=== PATIENT | male | born 1980 | race African-American/Black ===

== ENCOUNTER 2024-07-25 16:59 | Emergency (ER) | payer SELFPAY ==
[2024-07-25] VITALS (23 sets, daily range): BP systolic 137–149; BP diastolic 86–97; PULSE 64–96; RESP 13–21; TEMP 36.8; O2SAT 96–100
--- NOTE | ~2024-07-25 | XR_ITS ---
XR chest 2V Ordering provider: Xavi Polk MD History: 44 years Male with . cp, hx of afib . Comparison: None. FINDINGS: MEDIASTINUM: The cardiac silhouette is not enlarged. LUNGS: No infiltrates, effusions or pneumothorax. OTHER: No free air under the diaphragm. IMPRESSION: No acute cardiopulmonary pathology. Reviewed, dictated and finalized at location [facility]
--- NOTE | 2024-07-25 17:04 | ECG_ITS ---
Test Date: 2024-07-25 17:07:49 Measurements Intervals [place] Rate: 76 P: 60 [place]: 127 QRS: 34 QRSD: 89 T: -18 QT: 355 QTc: 399 Interpretive Statements SINUS RHYTHM POSSIBLE LEFT ATRIAL ENLARGEMENT [-0.1mV P WAVE IN V1/V2] NONSPECIFIC T-WAVE ABNORMALITY ABNORMAL ECG No previous ECG available for comparison Electronically Signed On 07-26-2024 10:54:07 [employer] by Gorge Monroy M.D.
[2024-07-25 17:35] LABS: Basophils Percent Auto 0.4 % (0.2-1.2); Eosinophils Percent Auto 0.6 % (0-4.4); Hematocrit 43.5 % (42.0-52.0); Hemoglobin 14.4 g/dL (14.0-18.0); Immature Granulocyte Absolute 0.02 K/mm3 (0.00-0.031); Immature Granulocyte Percent A 0.4 % (0-0.5); Lymphocytes Absolute Auto 1.75 K/mm3 (0.9-3.2); Lymphocytes Percent Auto 32.5 % (18.3-44.2); Mean Corpuscular HGB Conc 33.1 g/dl (32-36); Mean Corpuscular Hemoglobin 29.3 pg (26-34); Mean Corpuscular Volume 88.4 fl (80-100); Monocytes Absolute Auto 0.3 K/mm3 (0.1-0.6); Monocytes Percent Auto 5.6 % (2.6-8.5); Neutrophils Absolute Auto 3.3 K/mm3 (1.3-6.7); Neutrophils Percent Auto 60.5 % (45.5-73.1); Platelet Count Result 253 k/mm3 (150-375); Red Blood Count 4.92 M/mm3 (4.6-6.20); Red Cell Distribution Width 11.7 % (11.5-14.5); White Blood Count 5.4 K/mm3 (4.5-10.0)
--- NOTE | 2024-07-25 17:46 | ED_ITS ---
HPI - Chest Pain General Chief Complaint: Chest Pain Stated Complaint: chest pressure, hx afib Time Seen by Provider: 07/25/24 17:36 History of Present Illness HPI narrative: 44-year-old male with a history of AFib on amiodarone presenting with chest discomfort. States that earlier today he had a funny feeling in the left side of his chest. States that it just did not feel right, states that it was not painful. No shortness of breath or lightheadedness. No palpitations. No new leg swelling. States that he recently saw a athletic equipment manager who recommended he stop his amiodarone and switched to metoprolol which he has not done is he is concerned about the side effects of metoprolol. Related Data Allergies Allergy/AdvReac Type Severity Reaction Status Date / Time No Known Allergies Allergy Verified 07/25/24 17:32 Review of Systems Review of Systems: All systems reviewed & are unremarkable except as noted in HPI and below Exam Narrative: GENERAL: Well-appearing, well-nourished, and in no acute distress. HEAD: Normocephalic, atraumatic. EYES: PERRLA and EOMI. ENT: Grossly unremarkable NECK: Supple. CHEST: Clear to auscultation. No respiratory distress. HEART: Regular rate and rhythm ABDOMEN: Soft, nontender, nondistended EXTREMITIES: No edema. SKIN: Warm, dry, no rash. NEURO: Alert and oriented x3. PSYCH: Normal mood and affect. Course Vital Signs Vital signs: Vital Signs Temperature 98.2 F 07/25/24 17:05 Pulse Rate 96 07/25/24 17:05 Respiratory Rate 18 07/25/24 17:05 Blood Pressure 147/88 H 07/25/24 17:05 Pulse Oximetry 100 07/25/24 17:05 Oxygen Delivery Room Air 07/25/24 17:05 Temperature 98.2 F 07/25/24 17:05 Pulse Rate 79 07/25/24 18:05 Respiratory Rate 18 07/25/24 18:05 Blood Pressure 145/90 H 07/25/24 18:05 Pulse Oximetry 99 07/25/24 18:05 Oxygen Delivery Room Air 07/25/24 17:27 MDM - Chest Pain MDM Narrative Medical decision making narrative: 44-year-old male presenting with chest discomfort earlier today. Blood pressure is mildly elevated, otherwise vitals are within normal limits. EKG per my interpretation shows normal sinus rhythm, nonspecific T-wave changes, no ST elevations or depressions. Blood work is unremarkable. Troponin is undetectable. 3 hour troponin remains undetectable. Feel he is safe for outpatient management. Discussed with him to stop his amiodarone and start the metoprolol as his athletic equipment manager recently recommended. Recommend close PCP follow-up. Will provide the phone number for a new 1. Appropriate return precautions given. Discharged in stable condition. Differential Diagnosis Differential diagnosis: Likely atypical chest pain, costochondritis and chest pain Medical Records Data Attestation: I reviewed the patient's medical records. Lab Data Attestation: I reviewed the patient's lab results. 07/25/24 17:15 07/25/24 17:15 Labs: Lab Results 07/25/24 07/25/24 Range/Units 17:15 20:13 WBC 5.4 (4.5-10.0) K/mm3 RBC 4.92 (4.6-6.20) M/mm3 Hgb 14.4 (14.0-18.0) g/dL Hct 43.5 (42.0-52.0) % MCV 88.4 (80-100) fl MCH 29.3 (26-34) pg MCHC 33.1 (32-36) g/dl RDW 11.7 (11.5-14.5) % Plt Count 253 (150-375) k/mm3 MPV 10.0 (7.4-10.4) fl Immature Gran % (Auto) 0.4 (0-0.5) % Neut % (Auto) 60.5 (45.5-73.1) % Lymph % (Auto) 32.5 (18.3-44.2) % [place] % (Auto) 5.6 (2.6-8.5) % Eos % (Auto) 0.6 (0-4.4) % Baso % (Auto) 0.4 (0.2-1.2) % Lymph # (Auto) 1.75 (0.9-3.2) K/mm3 [place] # (Auto) 0.3 (0.1-0.6) K/mm3 Eos # (Auto) 0.0 (0-0.3) K/mm3 Baso # (Auto) 0.0 (0.0-0.1) K/mm3 Abs Immat Gran (auto) 0.02 (0.00-0.031) K/mm3 Absolute Neuts (auto) 3.3 (1.3-6.7) K/mm3 Absolute Nucleated RBC 0.000 (0.0-0.012) K/mm3 Nucleated RBC % 0.0 (0.0-0.2) % PT 13.8 (11.1-14.7) Seconds INR 1.0 APTT 30.6 (22.3-36.8) Seconds Sodium 142 (137-145) mmol/L Potassium 3.4 (3.4-5.0) mmol/L Chloride 104 (98-107) mmol/L Carbon Dioxide 29 (22-30) mmol/L Anion Gap 9 (4-12) mmol/L BUN 14 (9-20) mg/dL Creatinine 1.10 (0.7-1.3) mg/dL Estim Creat Clear Calc 85 ml/min Estimated GFR > 60 (59 - ) Glucose 106 (65-110) mg/dL Calcium 9.4 (8.4-10.2) mg/dL Total Bilirubin 1.5 H (0.2-1.3) mg/dL AST 31 (17-59) U/L ALT 28 (6-50) U/L Alkaline Phosphatase 66 (38-126) U/L Troponin I < 0.012 < 0.012 (0.000-0.034) ng/mL Total Protein 9.0 H (6.3-8.2) g/dL Albumin 5.0 (3.5-5.1) g/dL Lipase 106 (23-300) U/L Imaging Data Radiologist's impression: ITS Impressions Chest X-Ray 07/25/24 17:56 IMPRESSION: No acute cardiopulmonary pathology. Critical Care Time Critical Care Time Critical Care Time: No Discharge Plan Discharge Clinical Impression: Atypical chest pain Patient Disposition: Home, Self-Care Condition: Stable Instructions: Antibiotic Form, Chest Pain (ED) Additional Instructions: Your EKG, chest x-ray, blood work today are reassuring. Please stop the amiodarone and start your metoprolol as prescribed by her athletic equipment manager. Follow- up closely with primary care. If your symptoms worsen or other concerning symptoms arise, please return to the ER. Follow-up/Referrals: Torrey Welsh MD [Physician] - Stand Alone Forms: Work/School Release IP
[2024-07-25 17:47] LABS: Alanine Aminotransferase 28 U/L (6-50); Alkaline Phosphatase 66 U/L (38-126); Anion Gap 9 mmol/L (4-12); Aspartate Amino Transferase 31 U/L (17-59); Bilirubin,Total 1.5 mg/dL (0.2-1.3); Blood Urea Nitrogen 14 mg/dL (9-20); Calcium 9.4 mg/dL (8.4-10.2); Carbon Dioxide 29 mmol/L (22-30); Chloride 104 mmol/L (98-107); Estimated CRCL calculation 85 ml/min; Estimated Glomerular Filt Rate > 60; Glucose 106 mg/dL (65-110); Lipase 106 U/L (23-300); Potassium 3.4 mmol/L (3.4-5.0); Sodium 142 mmol/L (137-145)
[2024-07-25 17:49] LABS: Prothrombin Time 13.8 Seconds (11.1-14.7)
[2024-07-25 17:50] LABS: Partial Thromboplastin Time 30.6 Seconds (22.3-36.8)
[2024-07-25 17:57] LABS: Troponin I < 0.012 ng/mL (0.000-0.034)
[2024-07-25] MEDS: ASPIRIN 81 MG CHEWABLE TABLET 324 MG PO (18:05)
--- NOTE | 2024-07-25 19:19 | PC.NURSE ---
Report given to Nakul YOUSSEF, all questions answered
[2024-07-25 21:10] LABS: Troponin I < 0.012 ng/mL (0.000-0.034)
== END 2024-07-25 21:38 | disposition home or self-care (01) ==
PROVIDERS: Emergency Medicine; Emergency Provider Emergency Medicine
DX: R07.89 Other chest pain (principal)
CPT/HCPCS: 36415; 71046; 80053; 83690; 84484; 85025; 85610; 85730; 93005; 99284; A9270